=== PATIENT | female | born 1975 | race Caucasian/White ===

== ENCOUNTER 2019-07-28 15:36 | Emergency (ER) | payer BC ==
[~2019-07-28] VITALS: Ht 180.3 cm; Wt 90.0 kg
[~2019-07-28 15:36] MED LIST: LIDOcaine 1% w/EPI 1:100,000 30ml vial (MDV) ONE
[2019-07-28 15:39] VITALS: BP 123/71
[2019-07-28] MEDS ORDERED: ibuprofen tablet 400 MG TABLET PO ONE (16:35)
[2019-07-28] MEDS ORDERED: TETanus/Pertussis (Acell)/Diphther VAC/PF (Tdap-Adult) 0.5ml syringe IMVAC ONE (16:35)
[2019-07-28] MEDS ORDERED: AMOX-580 PO (17:15)
== END 2019-07-28 17:31 | disposition short-term general hospital (02) ==
LOC: ER 15:37
DX: S61.412A Laceration without foreign body of left hand, initial encounter (principal); M79.641 Pain in right hand; M79.642 Pain in left hand; Z88.0 Allergy status to penicillin; Z79.2 Long term (current) use of antibiotics; W54.0XXA Bitten by dog, initial encounter; Y93.89 Activity, other specified; Y92.89 Other specified places as the place of occurrence of the external cause; Y99.8 Other external cause status
CPT/HCPCS: 12002; 90471; 90715; 96372; 99283